=== PATIENT | male | born 1975 | race Caucasian/White ===

== ENCOUNTER 2021-01-13 10:51 | Outpatient (REF) | payer BC, SELFPAY ==
[2021-01-13 11:32] LABS: MANUAL DIFF FLAG NO
[2021-01-13 11:36] LABS: Basophils Percent Auto 0.8 % (0-2); Eosinophils Percent Auto 0.8 % (0-4); Hematocrit 42.7 % (42-52); Hemoglobin 13.9 g/dl (14.0-18.0); Imm Gran Abs Auto 0.01 X10*3/uL (0.00-0.03); Imm Gran Pct Auto 0.3 % (0.0-0.4); Lymphocytes Absolute Auto 1.5 X10*3/uL (1.2-4.9); Lymphocytes Percent Auto 40.8 % (20-40); Mean Corpuscular HGB Conc 32.6 g/dl (31.0-36.0); Mean Corpuscular Hemoglobin 28.4 pg (27.0-33.0); Mean Corpuscular Volume 87.1 fL (80-98); Mean Platelet Volume 9.8 fL (9.4-12.4); Monocytes Absolute Auto 0.4 X10*3/uL (0.1-1.2); Monocytes Percent Auto 10.5 % (2-11); Neutrophils Absolute Auto 1.7 X10*3/uL (2.0-8.3); Neutrophils Percent Auto 46.8 % (45-73); Platelet Count 229 X10*3/uL (160-400); Red Cell Distribution Width 12.5 % (11.0-16.0); White Blood Count 3.6 X10*3/uL (4.8-10.8)
[2021-01-13 11:38] LABS: Glucose Urine UA NEG (NEG); Leukocyte Esterase Urine NEG (NEG); Nitrite Urine NEG (NEG); Urine Blood NEG (NEG); Urine Ketones NEG (NEG); Urine Protein NEG (NEG-TRACE)
[2021-01-13 11:39] LABS: Appearance Urine CLEAR; Color Urine YELLOW
[2021-01-13 12:25] LABS: TSH reflex Free T4 1.18 uIU/mL (0.32-4.0); Vitamin D 25-OH Total 26.6 ng/mL (>30)
[2021-01-13 12:32] LABS: Alanine Aminotransferase 24 U/L (0-40); Albumin Level 4.4 g/dL (3.5-5.0); Alkaline Phosphatase 57 U/L (39-117); Anion Gap 11 (12-20); Aspartate Amino Transferase 29 U/L (5-37); Bilirubin Total 0.5 mg/dL (0.0-1.0); Blood Urea Nitrogen 16 mg/dL (9-16); Calcium 9.4 mg/dL (8.4-10.2); Carbon Dioxide 28 mmol/L (22-29); Chloride 105 mmol/L (96-108); Cholesterol 221 mg/dL; Estimated Glomerular Filt Rate > 60; Glucose Fasting 85 mg/dL (60-99); HDL Cholesterol 71 mg/dL; LDL Cholesterol Calculated 136 mg/dl; Potassium 4.1 mmol/L (3.3-5.1); Sodium 140 mmol/L (135-145); Total Protein 6.6 g/dL (6.5-8.0); Triglycerides 73 mg/dL
== END 2021-01-13 10:52 | disposition home or self-care (01) ==
LOC: HO.LAB 10:51
PROVIDERS: PCP Internal Medicine; Visit Provider Internal Medicine
DX: Z00.00 Encounter for general adult medical examination without abnormal findings (principal); E78.00 Pure hypercholesterolemia, unspecified; R94.5 Abnormal results of liver function studies; R39.11 Hesitancy of micturition; Z12.5 Encounter for screening for malignant neoplasm of prostate
CPT/HCPCS: 36415; 80053; 80061; 81003; 82306; 84153; 84443; 85025

== ENCOUNTER → 2021-06-10 10:14 | Outpatient (BNVA) | payer BC, SELFPAY | PROVIDERS: PCP Internal Medicine; Visit Provider Urology ==

== ENCOUNTER → 2021-08-10 14:48 | Outpatient (BNVA) | payer BC, SELFPAY | PROVIDERS: PCP Internal Medicine; Referring Provider Internal Medicine; Visit Provider Nurse Practitioner Family ==

== ENCOUNTER → 2021-09-13 16:08 | Outpatient (BNVA) | payer BC, SELFPAY | PROVIDERS: PCP Internal Medicine; Visit Provider Urology ==

== ENCOUNTER 2021-12-12 09:35 | Day surgery (SDC) | payer BC, SELFPAY ==
[2021-12-07 11:25] VITALS: BMI 22.1
--- NOTE | 2021-12-08 14:42 | HO.ANESPROP2 ---
Documented by User: Nupur Neumann NP 12/08/21 14:42 HPI - Anesthesia Eval Consult details Narrative: 46yo M for Colonoscopy [facility] Active Problems Active Problems: All Active Problems (Updated 08/24/21 @ 20:45 by VIOLETA Mello) Bladder outlet obstruction (Acute) Urinary hesitancy (Acute) Colon cancer screening (Acute) Pure hypercholesterolemia (Acute) Annual physical exam (Acute) Past Medical History Medical History (Updated 08/24/21 @ 20:45 by VIOLETA Mello) Elevated LFTs History of deviated nasal septum Pure hypercholesterolemia Urinary hesitancy Family History Family History Mother HTN (hypertension) Surgical History Surgical History No significant past surgical history Social History Social History Alcohol intake: current Alcohol intake frequency: holidays/special occasions only Patient Tobacco Use Status: Never used Tobacco Use of substances other than those prescribed or required for medical reasons: Yes Substance Use Frequency: Occasionally Are you DNR?: No Advance Directives: No Advance Directives Information Provided: Yes Meds Allergies Allergy/AdvReac Type Severity Reaction Status Date / Time amoxicillin Allergy Unknown hives Verified 08/10/21 14:48 penicillin V Allergy Unknown hives Verified 08/10/21 14:48 Exam Exam Date and Time: December 08, 2021 1442 Height,Weight and Vital Signs: Height 5 ft 6 in Weight 62.142 kg Assessment and Plan Assessment Anesthesia Assessment: Chart Reviewed Documented by User: Belinda Zavala MD 12/12/21 10:54 [facility] Past Medical History Medical History (Updated 08/24/21 @ 20:45 by VIOLETA Mello) Elevated LFTs History of deviated nasal septum Pure hypercholesterolemia Urinary hesitancy Family History Family History Mother HTN (hypertension) Family history of problems with anesthesia: No Surgical History Surgical History No significant past surgical history History of Problems with Anesthesia: No Social History Social History Alcohol intake: current Alcohol intake frequency: holidays/special occasions only Patient Tobacco Use Status: Never used Tobacco Use of substances other than those prescribed or required for medical reasons: Yes Substance Use Frequency: Occasionally Are you DNR?: No Advance Directives: No Advance Directives Information Provided: Yes Meds Allergies Allergy/AdvReac Type Severity Reaction Status Date / Time amoxicillin Allergy Unknown hives Verified 08/10/21 14:48 penicillin V Allergy Unknown hives Verified 08/10/21 14:48 Exam Airway Mallampati Class: II (Front tooth cap) TM Dist: >3cm Neck ROM: Full Heart: rrr Lungs: cta Assessment and Plan Assessment Anesthesia Assessment: Anesthesia Plan Discussed Final Anesthetic Review Family History of Problems with Anesthesia: No History of Problems with Anesthesia: No NPO: Yes ASA Class: II Final Preanesthetic Review: No Changes in Pt Med Stat, Meds/Allgs Chart Reviewed and Consent Obtained/Reviewed Patient Risk: Intermediate Procedure Risk: Intermediate Anesthetic Plan Anesthetic Plan: MAC: Disposition: Standard PACU
--- NOTE | 2021-12-12 09:47 | MHC.SHP ---
Pre-Procedural Eval Section A Date of Service: 12/12/21 Section B Chief Complaint: screening Details of Present Illness: colon cancer screening Relevant Family History (Specify if Yes): No Relevant Social History: None Present Medications: see Short Stay Collaborative assessment Medical History: Significant History (Elevated LFTs History of deviated nasal septum Pure hypercholesterolemia Urinary hesitancy) History of Previous Operations: No relevant previous surgery Allergies: Allergies Allergy/AdvReac Type Severity Reaction Status Date / Time amoxicillin Allergy Unknown hives Verified 08/10/21 14:48 penicillin V Allergy Unknown hives Verified 08/10/21 14:48 Review of Systems Sugical H&P ROS: Negative: Constitution, Cardiovascular, Respiratory and Gastrointestinal Exam Surgical H&P Exam: Normal: Heart, Normal: Lungs, Normal: Extremities and Normal: Abdomen Plan Diagnosis/Plan: Unchanged I have reviewed the history and physical and performed a pertinent physical examination on my patient. No changes have occurred unless specified.
[2021-12-12 09:57] VITALS: BMI 21.9
[2021-12-12 10:08] VITALS: BP 140/74; PULSE 51; RESP 18; TEMP 36.3; O2SAT 97
[2021-12-12] MEDS: Lactated Ringers 1,000 ML 100 ML IVCONT (10:23)
--- NOTE | 2021-12-12 11:01 | W.PM.OPN ---
Operative Note Operative Note Date of Service: 12/12/21 Narrative: Pre-op diagnosis: Colon cancer screening Post-op diagnosis:?other (Colon polyps, diverticulosis) Procedure: COLONOSCOPY TILL CECUM WITH BIOPSIES, SNARE POLYPECTOMY AND SUBMUCOSAL INJECTION Consent: Indications for the procedure and potential complications of bleeding, perforation, reaction to medications and missed diagnosis were discussed with the patient and informed consent was obtained. Instrument: Olympus PCF H 190 L variable stiffness pediatric colonoscope Monitoring: Vital signs and clinical assessment, intermittent blood pressure monitoring, continuous EKG monitoring, Pulse oximetry and Carbon Dioxide monitoring were done throughout the procedure. Colon withdrawl time was 22 minutes. Procedure: The patient was placed in the left lateral decubitis position and pre-procedure medications were administered. After a digital rectal examination of the ano-rectum, the video colonoscope was inserted into the rectum and advanced through the colon to the cecum. The colonoscope was slowly withdrawn in a retrograde panoramic fashion and the colon mucosa was carefully examined including a retroflexed view of the rectum. Findings and interventions are described below. Procedure Difficulty: Without difficulty Findings: Terminal Ileum: Not evaluated Cecum:? Normal Ascending Colon:? A 2 to 2.5 cms flat polyp in the proximal ascending colon. Polyp was raised with 2 cc of Orise solution (submucosal injection) and? removed with a hot snare.? Polypectomy site was marked with Laura ink. Transverse Colon:? Normal Descending Colon:? Normal Sigmoid Colon:? Moderate diverticulosis Rectum:? A 4-5 mm diminutive appearing polyp which was biopsied Ano-rectum:? Normal Colon preparation:? Good? Impression and Post Procedure Diagnosis: Colonoscopy Findings: One large and one small polyps removed Moderate diverticulosis seen in the sigmoid colon Plan: Await pathology results Patient has an appointment on 12/26/21 in the GI [facility] with Bailee Cespedes FNP-BC. Repeat Colonoscopy interval based on path results - in 2 years if ascending colon polyp is adenomatous (to check polypectomy site) and 10 years if polyps are hyperplastic. Above findings were reviewed with the patient and colon polyps and diverticulosis handouts were given in the discharge area Surgeon: Oliver Jorge MD Anesthesia:?MAC (Dr Peralta) Was an Music Industry Internship used for this Procedure?:?Yes Music Industry Internship:?Sadia Domínguez Estimated blood loss (mL):?0 Pathology:?other (A. transverse colon polyp with Orise? b: rectal polyp) Condition:?stable Disposition:?PACU
[2021-12-12 11:45] VITALS: BP 105/60; PULSE 53; RESP 16; TEMP 36.6; O2SAT 100
[2021-12-12 12:00] VITALS: BP 110/64; PULSE 42; RESP 16; TEMP 36.6; O2SAT 100
== END 2021-12-12 12:28 | disposition home or self-care (01) ==
PROVIDERS: PCP Internal Medicine; Visit Provider Internal Medicine Gastroenterology
PROC: 0DJD8ZZ Inspection of Lower Intestinal Tract, Via Natural or Artificial Opening Endoscopic (ICD-10-PCS; CPT 45378; principal; 2021-12-12 10:50)
DX: Z12.11 Encounter for screening for malignant neoplasm of colon (principal); D12.3 Benign neoplasm of transverse colon; K62.1 Rectal polyp; K57.30 Diverticulosis of large intestine without perforation or abscess without bleeding; Z88.0 Allergy status to penicillin
CPT/HCPCS: 45385; 45380; 45381; 88305

== ENCOUNTER 2022-02-15 09:41 | Outpatient (REF) | payer BC, SELFPAY ==
--- NOTE | ~2022-02-15 | XR_ITS ---
EXAMINATION: XR KNEE, LEFT CLINICAL INFORMATION: Pain. COMPARISON: None TECHNIQUE: Four views of the left knee. FINDINGS: The tricompartment joint space is maintained normal. No bony erosive changes, acute fracture or loose body is seen. There are hypertrophic bony changes along the anterior tibial tubercle with mild soft tissue swelling. No acute fracture or dislocation is seen. There is no joint effusion seen. XR/XR knee LT 4V IMPRESSION: Hypertrophic osteoarthropathy along the anterior tibial tubercle with mild soft tissue swelling. This could be secondary to old injury or repetitive trauma.
[2022-02-15 11:49] LABS: Hemoglobin 14.5 g/dl (14.0-18.0); PLT CLUMP 1; SCAN SMEAR FLAG 1
[2022-02-15 11:51] LABS: Basophils Percent Auto 0.8 % (0-2); Eosinophils Percent Auto 0.5 % (0-4); Hematocrit 44.3 % (42.0-52.0); Lymphocytes Absolute Auto 1.6 X10*3/uL (1.2-4.9); Lymphocytes Percent Auto 41.8 % (20-40); MANUAL DIFF FLAG SCAN; Mean Corpuscular HGB Conc 32.7 g/dl (31.0-36.0); Mean Corpuscular Volume 85.7 fL (80.0-98.0); Mean Platelet Volume 11.4 fL (9.4-12.4); Monocytes Absolute Auto 0.4 X10*3/uL (0.1-1.2); Monocytes Percent Auto 11.2 % (2-11); Neutrophils Absolute Auto 1.8 x10*3/uL (2.0-8.3); Neutrophils Percent Auto 45.7 % (45-73); Red Blood Count 5.17 X10*6/uL (4.60-5.80); Red Cell Distribution Width 12.6 % (11.0-16.0)
[2022-02-15 12:09] LABS: White Blood Count 3.8 X10*3/uL (4.8-10.8)
[2022-02-15 12:10] LABS: Platelet Count 143 X10*3/uL (160-400); SLIDE REVIEW VERIFIED
[2022-02-15 12:20] LABS: Alanine Aminotransferase 17 U/L (0-40); Albumin Level 4.4 g/dL (3.5-5.0); Alkaline Phosphatase 60 U/L (39-117); Anion Gap 12 (12-20); Aspartate Amino Transferase 23 U/L (5-37); Bilirubin Total 0.5 mg/dL (0.0-1.0); Blood Urea Nitrogen 16 mg/dL (9-16); Calcium 9.4 mg/dL (8.4-10.2); Carbon Dioxide 29 mmol/L (22-29); Chloride 105 mmol/L (96-108); Cholesterol 204 mg/dL; Estimated Glomerular Filt Rate > 60; Glucose Fasting 83 mg/dL (60-99); HDL Cholesterol 66 mg/dL; LDL Cholesterol Calculated 128 mg/dl; Potassium 4.5 mmol/L (3.3-5.1); Sodium 141 mmol/L (135-145); Total Protein 6.6 g/dL (6.5-8.0); Triglycerides 51 mg/dL
[2022-02-15 12:44] LABS: Folate 16.6 ng/mL (> or = 4.0); Vitamin B12 242 pg/mL (200-900)
[2022-02-21 12:36] LABS: Vitamin D 25-OH, D2 <4 ng/mL; Vitamin D 25-OH, D3 26 ng/mL; Vitamin D 25-OH, Total 26 ng/mL (30-100)
== END 2022-02-15 09:42 | disposition home or self-care (01) ==
LOC: HO.LAB 09:41
PROVIDERS: PCP Internal Medicine; Visit Provider Nurse Practitioner Family
DX: Z00.00 Encounter for general adult medical examination without abnormal findings (principal); I10 Essential (primary) hypertension; E78.00 Pure hypercholesterolemia, unspecified; G89.29 Other chronic pain; M25.562 Pain in left knee
CPT/HCPCS: 36415; 73564; 80053; 80061; 82306; 82607; 82746; 85025

== ENCOUNTER 2022-06-08 19:01 | Outpatient (REF) | payer BC, SELFPAY ==
--- NOTE | ~2022-06-08 | MR_ITS ---
EXAMINATION: MR KNEE WITHOUT CONTRAST, LEFT CLINICAL INFORMATION: Medial left knee pain. COMPARISON: None TECHNIQUE: MRI of the knee without contrast was performed using routine sequences on a high-field scanner. FINDINGS: MENISCI: Medial Meniscus: Oblique, femoral articular surface tear through the posterior meniscal body and posterior horn. Lateral Meniscus: Intact LIGAMENTS: Cruciate: Intact Collateral: Intact EXTENSOR MECHANISM: Lobulated ossification within the distal Achilles tendon without associated edema, consistent with a chronic avulsive injury (chronic Rainer-Schlatter's disease). Intact quadriceps tendon. Normal patellofemoral alignment. Edema interposed between the iliotibial band and lateral femoral condyle which can be seen in the setting of iliotibial band friction syndrome. ARTICULAR CARTILAGE/BONE: Patellofemoral Compartment: Articular cartilage thinning with heterogeneity and underlying subchondral cystic change at the inferior aspect the lateral patellar facet. Tiny marginal osteophytes. Medial Compartment: Articular cartilage signal heterogeneity with tiny marginal osteophytes. Lateral Compartment: Intact articular cartilage. JOINT FLUID AND BURSAE: Trace joint effusion. MR/MR knee LT wo con IMPRESSION: 1. Oblique, femoral articular surface tear through the medial meniscus posterior body and posterior horn. 2. Mild edema interposed between the lateral femoral condyle and iliotibial band which can be seen in the setting of iliotibial band friction syndrome. 3. Findings consistent with chronic Labelle-Schlatter's disease. No acute patellar or quadriceps tendon injury. 4. Minimal patellofemoral and medial compartment arthrosis. Trace joint effusion.
== END 2022-06-08 19:02 | disposition home or self-care (01) ==
LOC: HO.MRI 19:01
PROVIDERS: Visit Provider Physician Assistant
DX: M23.92 Unspecified internal derangement of left knee (principal)
CPT/HCPCS: 73721

== ENCOUNTER 2022-07-25 06:01 | Day surgery (SDC) | payer BC, SELFPAY ==
[2022-07-17 15:38] VITALS: BMI 22.6
--- NOTE | 2022-07-24 08:25 | HO.ANESPROP2 ---
Documented by User: Nupur Neumann NP 07/24/22 08:28 HPI - Anesthesia Eval Consult details Narrative: 46yo M for Left Knee Arthroscopy s/p colo 12/2021 with MAC [facility] Active Problems Active Problems: All Active Problems (Updated 06/29/22 @ 15:45 by Abdiel William) Complex tear of meniscus of left knee (Acute) Vitamin B12 deficiency (Acute) Vitamin D deficiency (Acute) Internal derangement of left knee (Acute) Left knee injury (Acute) Thrombocytopenia (Acute) Hypovitaminosis D (Acute) Leukopenia (Acute) Chronic pain of left knee (Acute) Physical exam (Acute) Bladder outlet obstruction (Acute) Urinary hesitancy (Acute) Colon cancer screening (Acute) Pure hypercholesterolemia (Acute) Annual physical exam (Acute) Past Medical History Medical History Anxiety Elevated LFTs History of deviated nasal septum Pure hypercholesterolemia Urinary hesitancy Vitamin B12 deficiency Vitamin D deficiency Family History Family History Mother HTN (hypertension) Family history of problems with anesthesia: No Surgical History Surgical History (Updated 07/25/22 @ 06:44 by Kira Rodriguez RN) History of surgery on arm Hx of colonoscopy History of Problems with Anesthesia: No Social History Social History Household Members: Family Housing: House Alcohol intake: current Alcohol intake frequency: holidays/special occasions only Patient Tobacco Use Status: Never used Tobacco e-Cigarette/Vaping Use: Never Used Second Hand Smoke Exposure: No Use of substances other than those prescribed or required for medical reasons: No Are you DNR?: No Advance Directives: No Advance Directives Information Provided: Yes service: No Current occupational status: employed Current occupation: teacher Cognitive needs: No Hearing needs: No Vision needs: No Meds Allergies Allergy/AdvReac Type Severity Reaction Status Date / Time amoxicillin Allergy Unknown hives Verified 07/25/22 06:44 penicillin V Allergy Unknown hives Verified 07/25/22 06:44 Home Medications Medication Instructions Recorded Confirmed Last Taken Type multivitamin 1 tab PO DAILY 07/17/22 07/25/22 Unknown History omega 8-jdr-yei-fish oil 1,000 mg 1 cap PO DAILY 07/17/22 07/25/22 07/18/22 History (120 mg-180 mg) capsule (Fish Oil) cholecalciferol (vitamin D3) 25 25 mcg PO DAILY PRN Anxiety 07/25/22 07/25/22 Unknown History mcg (1,000 unit) capsule Exam Exam Date and Time: July 24, 2022 0825 Height,Weight and Vital Signs: Height 5 ft 6 in Weight 63.503 kg Pertinent Lab Results Pertinent Lab Results: Laboratory Tests 02/15/22 05/10/22 10:51 16:15 WBC 4.1 L Hgb 13.0 L Hct 40.5 L Plt Count 225 Sodium 141 Potassium 4.5 Chloride 105 Carbon Dioxide 29 BUN 16 Creatinine 0.83 Assessment and Plan Assessment Anesthesia Assessment: Chart Reviewed Final Anesthetic Review Family History of Problems with Anesthesia: No History of Problems with Anesthesia: No Documented by User: Belinda Zavala MD 07/25/22 06:56 [facility] Past Medical History Medical History Anxiety Elevated LFTs History of deviated nasal septum Pure hypercholesterolemia Urinary hesitancy Vitamin B12 deficiency Vitamin D deficiency Family History Family History Mother HTN (hypertension) Surgical History Surgical History (Updated 07/25/22 @ 06:44 by Kira Rodriguez RN) History of surgery on arm Hx of colonoscopy Social History Social History Household Members: Family Housing: House Alcohol intake: current Alcohol intake frequency: holidays/special occasions only Patient Tobacco Use Status: Never used Tobacco e-Cigarette/Vaping Use: Never Used Second Hand Smoke Exposure: No Use of substances other than those prescribed or required for medical reasons: No Are you DNR?: No Advance Directives: No Advance Directives Information Provided: Yes service: No Current occupational status: employed Current occupation: teacher Cognitive needs: No Hearing needs: No Vision needs: No Meds Allergies Allergy/AdvReac Type Severity Reaction Status Date / Time amoxicillin Allergy Unknown hives Verified 07/25/22 06:44 penicillin V Allergy Unknown hives Verified 07/25/22 06:44 Home Medications Medication Instructions Recorded Confirmed Last Taken Type multivitamin 1 tab PO DAILY 07/17/22 07/25/22 Unknown History omega 4-bhh-lcf-fish oil 1,000 mg 1 cap PO DAILY 07/17/22 07/25/22 07/18/22 History (120 mg-180 mg) capsule (Fish Oil) cholecalciferol (vitamin D3) 25 25 mcg PO DAILY PRN Anxiety 07/25/22 07/25/22 Unknown History mcg (1,000 unit) capsule Exam Airway Mallampati Class: II TM Dist: >3cm Neck ROM: Full Heart: rrr Lungs: cta Assessment and Plan Assessment Anesthesia Assessment: Anesthesia Plan Discussed Final Anesthetic Review NPO: Yes ASA Class: II Final Preanesthetic Review: No Changes in Pt Med Stat, Meds/Allgs Chart Reviewed and Consent Obtained/Reviewed Patient Risk: Intermediate Procedure Risk: Intermediate Anesthetic Plan Anesthetic Plan: GA Disposition: Standard PACU
[2022-07-25] VITALS (8 sets, daily range): BP systolic 121–130; BP diastolic 66–78; PULSE 54–70; RESP 15–18; TEMP 36.2–36.7; O2SAT 95–99
[2022-07-25] MEDS: Lactated Ringers 1,000 ML 100 ML IVCONT (06:41)
--- NOTE | 2022-07-25 08:21 | P.BOP_ITS ---
Brief Operative Note Date of Service: 07/25/22 Pre-op diagnosis: left mmt Post-op diagnosis: same Procedure: left knee partial medial meniscectomy Implants: none Surgeon: Abdoul Hooper MD Anesthesia: GETA and local Was an Game Breeding Farm Manager used for this Procedure?: No Estimated blood loss (mL): 2 IV fluids (mL): 500 Pathology: none sent Condition: stable Disposition: PACU
[2022-07-25] MEDS: Acetaminophen 325 MG TABLET 650 MG PO (09:27)
[2022-07-25] MEDS: Ketorolac Tromethamine 30 MG/ML VIAL 15 MG IVPUSH (09:30)
--- NOTE | 2022-07-25 09:39 | PC.NURSE ---
when assisting patient to dress fine pink rash noted to abd and upper back. Dr. Arevalo at bedside and cleared patient for discharge. No itching or diff breathing repoted.
--- NOTE | 2022-08-01 10:38 | W.PM.OPN ---
Operative Note Operative Note Date of Service: 07/25/22 Narrative: Date of Service: 07/25/22 Pre-op diagnosis:left mmt Post-op diagnosis: same Procedure: left knee partial medial meniscectomy Implants: none Surgeon: Abdoul Hooper MD Anesthesia: GETA and local Was an General Foundry Worker used for this Procedure?: No Estimated blood loss (mL): 2 IV fluids (mL): 500 Pathology: none sent Condition: stable Disposition: PACU Procedure in detail: Patient was brought to the operating room placed supine on the arthroscopic table and prepped and draped in standard sterile fashion. A time-out was called to identify proper site proper procedure proper surgeon and IV antibiotics per weight were administered. I began by exsanguinating the limb and insufflating tourniquet to 300 mm Hg. Then made a standard anterolateral stab incision. The knee was insufflated with water and 30 degree arthroscope was placed. There was grade 0 fibrillations of the patella but overall suprapatellar pouch was plane and the gutters were clean. I descended into the medial compartment where I made my medial portal under direct visualization. There was and obvious complex tear of the body and posterior horn of the medial meniscus. THe root was intact and there was grade 0-1 changes of the posterior tibial plateau only. I used a combination of biter shaver and cautery to remove unstable portions of the meniscus. Approximately 40% meniscal volume was removed. Once I was happy with this the ACL was examined and found to be intact and the lateral compartment also was without the need for intervention. I then removed all instrumentation and closed the portals with skin glue. 25 mL of 2% Marcaine with epinephrine was injected into the joint and the surrounding soft tissues. Patient was then placed in sterile dressing extubated brought recovery room stable condition. There were no known complications.
== END 2022-07-25 11:06 | disposition home or self-care (01) ==
PROVIDERS: PCP Internal Medicine; Visit Provider Orthopaedic Surgery
PROC: (CPT 29870; principal; 2022-07-25 07:30)
DX: S83.232A Complex tear of medial meniscus, current injury, left knee, initial encounter (principal); X58.XXXA Exposure to other specified factors, initial encounter; Y93.9 Activity, unspecified; Y92.9 Unspecified place or not applicable; Y99.9 Unspecified external cause status; Z88.0 Allergy status to penicillin
CPT/HCPCS: 29881; J0171; J0330; J0690; J1100; J1885; J2250; J2405; J2795; J3010

== ENCOUNTER 2022-09-28 16:00 | Outpatient (RCR) | payer BC, SELFPAY ==
--- NOTE | 2022-09-28 16:44 | MHC.PT.DC ---
[facility] [place] Office [place] Office [place] Office [address] Joycelyn Dinero [address] [phone] F: [phone] F: [phone] F: [phone] F: [phone] Physical Therapy Discharge Report Diagnosis: S/p LEFT KNEE PARTIAL MENISECTOMY Date of Surgery: 07/25/22 Date of Evaluation: 07/31/22 Date of Discharge: 09/28/22 Treatments to Date: 7 Cancellations to Date: 3 No Shows to Date: 0 Discharge Status: Achieved Goals Improved Function Independent with HEP Discharge Summary: 09/28/2022: Pt has made good progress since beginning PT allowing him to meet all of his PT goals. Pt has maximized benefits of PT at this point and therefore skilled PT is no longer indicated at this time. Pt has been provided with a well rounded HEP in which he should continue with at home. He has been educated that when he returns to running the importance of weaning himself back into running as tolerated and as pain allows in order to avoid adverse reactions. He verbalizes understanding of this and if any new issues arise down the road he should follow up with his referring provider. Electronically signed by: Karey Shepard, PT, DPT, ATC Please sign and return to therapist. Thank you for your referral.
== END 2022-09-28 16:45 | disposition home or self-care (01) ==
LOC: HO.PT 16:00
PROVIDERS: Visit Provider Physician Assistant
DX: S83.204A Other tear of unspecified meniscus, current injury, left knee, initial encounter (principal)
CPT/HCPCS: 97110; 97161; 97530

== ENCOUNTER 2023-02-09 09:35 | Outpatient (REF) | payer BC, SELFPAY ==
[2023-02-09 09:50] LABS: MANUAL DIFF FLAG NO
[2023-02-09 10:31] LABS: Basophils Percent Auto 0.5 % (0-2); Eosinophils Absolute Auto 0.1 X10*3/uL (0.0-0.4); Eosinophils Percent Auto 0.9 % (0-4); Hematocrit 42.8 % (42.0-52.0); Hemoglobin 13.8 g/dl (14.0-18.0); Imm Gran Abs Auto 0.02 X10*3/uL (0.00-0.03); Imm Gran Pct Auto 0.3 % (0.0-0.4); Lymphocytes Absolute Auto 1.6 X10*3/uL (1.2-4.9); Lymphocytes Percent Auto 27.6 % (20-40); Mean Corpuscular HGB Conc 32.2 g/dl (31.0-36.0); Mean Corpuscular Hemoglobin 28.4 pg (27.0-33.0); Mean Corpuscular Volume 88.1 fL (80.0-98.0); Mean Platelet Volume 10.6 fL (9.4-12.4); Monocytes Absolute Auto 0.5 X10*3/uL (0.1-1.2); Monocytes Percent Auto 7.9 % (2-11); Neutrophils Absolute Auto 3.6 x10*3/uL (2.0-8.3); Neutrophils Percent Auto 62.8 % (45-73); Platelet Count 241 X10*3/uL (160-400); Red Blood Count 4.86 X10*6/uL (4.60-5.80); Red Cell Distribution Width 12.4 % (11.0-16.0); White Blood Count 5.8 X10*3/uL (4.8-10.8)
[2023-02-09 10:55] LABS: Appearance Urine Clear; Color Urine Yellow; Glucose Urine UA Negative (Negative); Leukocyte Esterase Urine Negative (Negative); Nitrite Urine Negative (Negative); Urine Blood Negative (Negative); Urine Ketones Negative (Negative); Urine Protein Negative (Neg-Trace)
[2023-02-09 11:04] LABS: Alanine Aminotransferase 24 U/L (0-40); Albumin Level 4.2 g/dL (3.5-5.0); Alkaline Phosphatase 57 U/L (39-117); Anion Gap 10 (12-20); Aspartate Amino Transferase 29 U/L (5-37); Bilirubin Total 0.7 mg/dL (0.0-1.0); Blood Urea Nitrogen 13 mg/dL (9-16); Calcium 9.6 mg/dL (8.4-10.2); Carbon Dioxide 28 mmol/L (22-29); Chloride 106 mmol/L (96-108); Cholesterol 192 mg/dL; Estimated Glomerular Filt Rate > 60; Glucose Fasting 87 mg/dL (60-99); HDL Cholesterol 60 mg/dL; LDL Cholesterol Calculated 120 mg/dl; Potassium 4.2 mmol/L (3.3-5.1); Sodium 140 mmol/L (135-145); Total Protein 6.3 g/dL (6.5-8.0); Triglycerides 64 mg/dL
[2023-02-09 11:30] LABS: Folate 16.6 ng/mL (> or = 4.0); Prostate Specific Antigen Scr 1.08 ng/mL (<0.05-4.0); TSH reflex Free T4 2.49 uIU/mL (0.32-4.0); Vitamin B12 894 pg/mL (200-900)
== END 2023-02-09 09:36 | disposition home or self-care (01) ==
LOC: HO.LAB 09:35
PROVIDERS: PCP Internal Medicine; Visit Provider Internal Medicine
DX: Z00.00 Encounter for general adult medical examination without abnormal findings (principal); E78.00 Pure hypercholesterolemia, unspecified; E55.9 Vitamin D deficiency, unspecified; R30.0 Dysuria; D72.819 Decreased white blood cell count, unspecified; E53.8 Deficiency of other specified B group vitamins; D69.6 Thrombocytopenia, unspecified; D69.3 Immune thrombocytopenic purpura; Z12.5 Encounter for screening for malignant neoplasm of prostate
CPT/HCPCS: 36415; 80053; 80061; 81003; 82306; 82607; 82746; 84153; 84443; 85025

== ENCOUNTER 2023-04-24 11:07 | Outpatient (AMB) | payer BC, SELFPAY ==
[2023-04-24 11:11] VITALS: BP 124/72; PULSE 55; O2SAT 99; BMI 22.4
--- NOTE | 2023-04-24 11:11 | A.OFFPC_ITS ---
Vital Signs 04/24/23 11:11 Height 5 ft 6 in Weight 139 lb BMI 22.4 BP 124/72 Blood Pressure Location Lt brachial Position Sitting Pulse 55 Pulse Source Pulse Oximeter Pulse Oximetry (%) 99 Oxygen Delivery Method Room Air Intake Visit Reasons: lower back pain, numb left thigh Intake Note: Pt is here for lower back pain for a week and left thigh numbness. 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 May take another dose after 20 to 30 minutes if needed PO; cyanocobalamin (vitamin B-12) (Vitamin B-12) 1,000 mcg PO DAILY multivitamin 1 tab PO DAILY omega 3-dae-gcz-fish oil 1,000 mg (120 mg-180 mg) (Fish Oil) 1 cap PO DAILY polymyxin B sulf-trimethoprim 10,000 unit- 1 mg/mL 1 drp ophthalmic (eye) Q3H 7 days Tobacco use date assessed: 02/09/23 Dental Screening Dental Screen Date: 04/24/23 Did you have a dental visit in the last 12 months?: Yes Did you have a dental problem in the last 6 months where you did not have access to dental care?: No Was dental information given to patient?: Patient has dentist HPI lower back pain, numb left thigh HPI Details Patient is a 47-year-old male here today for problem visit. This is the 1st time I am meeting this 47-year-old male with a past medical history significant for leukopenia , hyperlipidemia and generalized anxiety disorder. Reports over the last week having lower back pain and some numbness in his left thigh. He reports he may have pulled his back out while doing yard work, twisting his torso. He otherwise denies any saddle amnesia, bowel or bladder dysfunction. [facility] Medical History (Updated 04/24/23 @ 11:26 by James Garcia PA-C) Anxiety Elevated LFTs History of deviated nasal septum Meniscal injury (~07/26/22) Pure hypercholesterolemia Urinary hesitancy Vitamin B12 deficiency Vitamin D deficiency Surgical History History of surgery on arm Hx of colonoscopy Status post arthroscopic surgery of left knee (~07/2022) Family History Mother HTN (hypertension) Social History Household Members: Family Housing: House Alcohol intake: current Alcohol intake frequency: holidays/special occasions only Patient Tobacco Use Status: Never used Tobacco e-Cigarette/Vaping Use: Never Used Second Hand Smoke Exposure: No service: No Current occupational status: employed Current occupation: teacher Cognitive needs: No Hearing needs: No Vision needs: No Questionnaire Thrive Questionnaire Date Thrive assessed: 06/14/22 JUAN-7 AMB Questionnaire JUAN-7 Date JUAN - 7 assessed: 02/09/23 Source: Developed by Drs. Venancio Limon, Kaye Plunkett, Jalen Dumont and colleagues, with an educational meño from [employer]. Review of Systems Const Denies headache(s) Eyes Denies loss of vision ENT Denies vertigo, Denies dizziness, Denies headache(s) and Denies sore throat Card Denies chest pain, Denies leg edema and Denies lightheadedness Resp Denies cough, Denies hemoptysis and Denies wheezing GI Denies abdominal pain, Denies melena, Denies constipation, Denies diarrhea and Denies vomiting Denies dysuria, Denies urinary frequency and Denies urinary urgency Musc Denies arthralgias, Denies joint swelling, Denies numbness and Denies tingling Neuro Denies Abnormal speech present, Denies behavioral changes, Denies vertigo, Denies dizziness, Denies headache(s), Denies loss of vision, Denies memory loss, Denies numbness and Denies tingling Psych Denies anxiety, Denies behavioral changes, Denies depression, Denies memory loss and Denies panic attacks Dipesh/Lymph Denies easy bleeding and Denies easy bruising Aller/Immun Denies wheezing Physical exam (Primary Care) Vital Signs: Last Vital Signs Pulse 55 04/24/23 11:11 BP 124/72 04/24/23 11:11 Pulse Ox 99 04/24/23 11:11 Oxygen Delivery Method Room Air 04/24/23 11:11 BMI result Body Mass Index 22.4 Tobacco/Smoking Status: Tobacco use Status Tobacco use date assessed 02/09/23 04/24/23 11:19 Patient Tobacco Use Status Never used Tobacco 04/24/23 11:19 e-Cigarette/Vaping Use Never Used 04/24/23 11:19 Thrive Assessment: Date of Thrive Assessment Date Thrive assessed 06/14/22 04/24/23 11:19 Const General: healthy appearing, no acute distress, alert and awake Nutritional Appearance: well nourished Orientation/consciousness: oriented to person, oriented to place and oriented to time HENMT Ears: TM's normal bilaterally General nose exam: Normal nasal mucous membranes and turbinates present Eyes Conjunctivae: conjunctivae normal Sclerae: sclerae normal Pupils: Equal, round and reactive pupils present Neck Neck: Yes no lymphadenopathy and Yes no JVD Thyroid: Thyroid normal Carotids: no bruits Resp Effort & Inspection: normal respiratory effort and not tachypneic Auscultation: no crackles, no rales, no rhonchi and no wheezes Cardio Rate: regular rate Rhythm: regular rhythm Heart sounds: no murmurs and normal S1 and S2 GI Palpation (GI): Soft to palpation, nontender, no hepatomegaly and no splenomegaly Auscultation: normal bowel sounds Skin General skin exam: no rashes or lesions noted and dry skin Neuro General: oriented to person, oriented to place and oriented to time Cranial nerves: Yes Equal, round and reactive pupils present Speech: No Abnormal speech present Gait exam (Neuro): Normal gait present Motor exam (neuro): no tremor noted Extrem Right upper extremity: full ROM Left upper extremity: full ROM Right lower extremity: full ROM; no edema Left lower extremity: full ROM; no edema Psych Mental Status: mental status grossly normal Speech and movement: Normal speech and movement present Affect: normal affect Attitude: cooperative Thought process: Normal thought process present Assessment and Plan Assessment & Plan (1) Lumbar radiculopathy, acute: Code(s): M54.16 - Radiculopathy, lumbar region Plan: Patient with a 1 week history lower lumbar spine pain with radicular symptoms into left lateral thigh. Seems to be having a nerve entrapment which at the L2- L3 region. Will likely benefit from formal physical therapy. Will supply patient with prednisone taper for inflammation around disc and nerve. Advised patient to rest and implemented gentle stretching of his lower back. Will consider MRI lumbar spine if physical therapy medications fail. Orders: Orders PT Evaluation and Treatment Today M54.16 - Radiculopathy, lumbar region XR lumbar spine 2-3V Today M54.16 - Radiculopathy, lumbar region Medications: New prednisone 10 mg PO DAILY 12 tabs 0RF 6 days M54.16 - Radiculopathy, lumbar region Coding Level of Care Code Est Pt Level 3 (38886) Diagnoses Lumbar radiculopathy, acute M54.16
== END 2023-04-24 11:38 | disposition home or self-care (01) ==
PROVIDERS: PCP Internal Medicine; Visit Provider Physician Assistant
DX: M54.16 Radiculopathy, lumbar region (principal)
CPT/HCPCS: 99213

== ENCOUNTER 2023-04-24 11:41 | Outpatient (REF) | payer BC, SELFPAY ==
--- NOTE | ~2023-04-24 | XR_ITS ---
EXAMINATION: XR LUMBOSACRAL SPINE CLINICAL INFORMATION: Radiculopathy, patient states it was an injury COMPARISON: None available. TECHNIQUE: Three views of the lumbosacral spine. FINDINGS: Mild multilevel lumbar spondylosis. No lumbar vertebral body compression fractures are appreciated. Straightening of the normal lumbar lordosis. Facet arthritis in the lower lumbar spine. XR/XR lumbar spine 2-3V IMPRESSION: Mild degenerative changes in the lumbar spine. Additional imaging with CT scan or MRI should be considered for better visualization as these modalities are much more sensitive for detection of fracture or other underlying pathology.
== END 2023-04-24 11:42 | disposition home or self-care (01) ==
LOC: HO.XRAY 11:41
PROVIDERS: PCP Internal Medicine; Visit Provider Physician Assistant
DX: M54.16 Radiculopathy, lumbar region (principal)
CPT/HCPCS: 72100

== ENCOUNTER 2023-12-31 08:01 | Day surgery (SDC) | payer BC, SELFPAY ==
--- NOTE | 2023-12-28 12:18 | P.CONAN_ITS ---
Documented by User: Nupur Neumann NP 12/28/23 12:18 HPI - Anesthesia Eval Consult details Narrative: 48yo M for Colonoscopy PMFSH Active Problems Active Problems: All Active Problems Lumbar radiculopathy, acute (Acute) Bacterial conjunctivitis of right eye (Acute) Annual physical exam (Acute) Colon cancer screening (Acute) Bladder outlet obstruction (Acute) Physical exam (Acute) Chronic pain of left knee (Acute) Leukopenia (Chronic) Hypovitaminosis D (Acute) Thrombocytopenia (Acute) Left knee injury (Acute) Internal derangement of left knee (Acute) Complex tear of meniscus of left knee (Acute) Vitamin B12 deficiency (Acute) Vitamin D deficiency (Acute) Urinary hesitancy (Acute) Pure hypercholesterolemia (Acute) Past Medical History Medical History (Updated 04/24/23 @ 11:26 by James Garcia PA-C) Meniscal injury (~07/26/22) Anxiety Vitamin B12 deficiency Vitamin D deficiency Urinary hesitancy Elevated LFTs Pure hypercholesterolemia History of deviated nasal septum Family History Family History Mother HTN (hypertension) Family history of problems with anesthesia: No Surgical History Surgical History History of surgery on arm Hx of colonoscopy Status post arthroscopic surgery of left knee (~07/2022) History of Problems with Anesthesia: No Social History Social History Household Members: Family Housing: House Alcohol intake: current Alcohol intake frequency: holidays/special occasions only Patient Tobacco Use Status: Never used Tobacco e-Cigarette/Vaping Use: Never Used Second Hand Smoke Exposure: No Advance Directives: No Advance Directives Information Provided: Yes service: No Current occupational status: employed Current occupation: teacher Cognitive needs: No Hearing needs: No Vision needs: No Meds Allergies Allergy/AdvReac Type Severity Reaction Status Date / Time amoxicillin Allergy Unknown hives Verified 04/24/23 11:21 penicillin V Allergy Unknown hives Verified 04/24/23 11:21 Home Medications ?Medication ?Instructions ?Recorded ?Confirmed ?Last Taken ?Type multivitamin 1 tab PO DAILY 07/17/22 04/24/23 Unknown History omega 2-awv-crb-fish oil 1,000 mg 1 cap PO DAILY 07/17/22 04/24/23 07/18/22 History (120 mg-180 mg) capsule (Fish Oil) Assessment and Plan Assessment Anesthesia Assessment: Chart Reviewed Final Anesthetic Review Family History of Problems with Anesthesia: No History of Problems with Anesthesia: No Documented by User: Belinda Zavala MD 12/31/23 08:22 [facility] Past Medical History Medical History (Updated 04/24/23 @ 11:26 by James Garcia PA-C) Meniscal injury (~07/26/22) Anxiety Vitamin B12 deficiency Vitamin D deficiency Urinary hesitancy Elevated LFTs Pure hypercholesterolemia History of deviated nasal septum Family History Family History Mother HTN (hypertension) Surgical History Surgical History History of surgery on arm Hx of colonoscopy Status post arthroscopic surgery of left knee (~07/2022) Social History Social History Household Members: Family Housing: House Alcohol intake: current Alcohol intake frequency: holidays/special occasions only Patient Tobacco Use Status: Never used Tobacco e-Cigarette/Vaping Use: Never Used Second Hand Smoke Exposure: No Advance Directives: No Advance Directives Information Provided: Yes service: No Current occupational status: employed Current occupation: teacher Cognitive needs: No Hearing needs: No Vision needs: No Meds Allergies Allergy/AdvReac Type Severity Reaction Status Date / Time amoxicillin Allergy Unknown hives Verified 04/24/23 11:21 penicillin V Allergy Unknown hives Verified 04/24/23 11:21 Home Medications ?Medication ?Instructions ?Recorded ?Confirmed ?Last Taken ?Type multivitamin 1 tab PO DAILY 07/17/22 04/24/23 Unknown History omega 5-mxu-blu-fish oil 1,000 mg 1 cap PO DAILY 07/17/22 04/24/23 07/18/22 History (120 mg-180 mg) capsule (Fish Oil) Exam Airway Mallampati Class: II (one cap laterally) TM Dist: >3cm Neck ROM: Full Heart: rrr Lungs: cta Assessment and Plan Final Anesthetic Review NPO: Yes ASA Class: II Final Preanesthetic Review: No Changes in Pt Med Stat, Meds/Allgs Chart Reviewed and Consent Obtained/Reviewed Patient Risk: Low Procedure Risk: Low Anesthetic Plan Anesthetic Plan: MAC: Disposition: Standard PACU
--- NOTE | 2023-12-31 08:17 | MHC.SHP ---
Pre-Procedural Eval Section A - 24 Hr Update-Section A only Date of Service: 12/31/23 The patient is an INPATIENT: No The patient has been examined within 24 hours of the surgical procedure. The History & Physical has been completed within 30 days and I have reviewed it.: No Section B - Complete if H&P > 30 days Chief Complaint: Surveillance of colon polyps Relevant Family History (Specify if Yes): No Relevant Social History: None Present Medications: see Short Stay Collaborative assessment Medical History: Significant History (Elevated LFTs History of deviated nasal septum Pure hypercholesterolemia Urinary hesitancy) History of Previous Operations: Relevant previous surgery/procedure and date(s) (History of colonoscopy) Allergies: Allergies Allergy/AdvReac Type Severity Reaction Status Date / Time amoxicillin Allergy Unknown hives Verified 04/24/23 11:21 penicillin V Allergy Unknown hives Verified 04/24/23 11:21 Review of Systems Sugical H&P ROS: Negative: Constitution, Cardiovascular, Respiratory and Gastrointestinal Exam Surgical H&P Exam: Normal: Heart, Normal: Lungs and Normal: Abdomen Plan Diagnosis/Plan: Change (Proceed with colonoscopy for surveillance of colon polyps) I have reviewed the history and physical and performed a pertinent physical examination on my patient. No changes have occurred unless specified. Time Spent With Patient Time: Total time managing care of this patient today ____ minutes.
--- NOTE | 2023-12-31 08:24 | P.OP_ITS ---
Operative Note Operative Note Date of Service: 12/31/23 Narrative: COLONOSCOPY TILL CECUM Pre-op diagnosis: Surveillance for colon polyps. Post-op diagnosis:? Diverticulosis Endoscopist:? Oliver Jorge MD Anesthesia:?MAC Consent: Indications for the procedure and potential complications of bleeding, perforation, reaction to medications and missed diagnosis were discussed with the patient and informed consent was obtained. Instrument: Olympus PCF H 190 L variable stiffness pediatric colonoscope Monitoring: Vital signs and clinical assessment, intermittent blood pressure monitoring, continuous EKG monitoring, Pulse oximetry and Carbon Dioxide monitoring were done throughout the procedure. Please see anesthesia flowsheet. Colon withdrawl time was 17 minutes. Procedure: The patient was placed in the left lateral decubitis position and pre-procedure medications were administered. After a digital rectal examination of the ano-rectum, the video colonoscope was inserted into the rectum and advanced through the colon to the cecum. The colonoscope was slowly withdrawn in a retrograde panoramic fashion and the colon mucosa was carefully examined including a retroflexed view of the rectum. Findings and interventions are described below. Procedure Difficulty: without difficulty - colon was long and there was some loop formation Findings: Terminal Ileum: Not evaluated Cecum: Normal Ascending Colon: Polypectomy site visualized in the proximal AC and no recurrent/residual polyp was seen Transverse Colon: Normal Descending Colon: Normal Sigmoid Colon: Moderate diverticulosis Rectum: Normal Ano-rectum: Normal Colon preparation: Good after copious irrigation. [place] Bowel Preparation Scale Right colon; 2 Transverse colon: 2 Left colon; 2 (0 = Unprepared colon segment with mucosa not seen due to solid stool that cannot be cleared. 1 = Portion of mucosa of the colon segment seen, but other areas of the colon segment not well seen due to staining, residual stool and/or opaque liquid. 2 = Minor amount of residual staining, small fragments of stool and/or opaque liquid, but mucosa of colon segment seen well. 3 = Entire mucosa of colon segment seen well with no residual staining, small fragments of stool or opaque liquid) Impression and Post Procedure Diagnosis: Colonoscopy Findings: No polyps were detected Moderate diverticulosis seen in the sigmoid colon Plan: Repeat Colonoscopy in 5 years due to a hx of adenomatous colon polyps (adult colonoscope and Dulcolax 10 mg daily x 3 days before colonoscopy appointment) for future colonoscopies. Above findings were reviewed with the patient and relevant handouts were given and the discharge area.
[2023-12-31 08:30] VITALS: BP 135/75; PULSE 51; RESP 18; TEMP 36.9; O2SAT 100; BMI 22.4
[2023-12-31] MEDS: Lactated Ringers 1,000 ML 100 ML IVCONT (08:35)
[2023-12-31 09:14] VITALS: BP 97/54; PULSE 47; RESP 12; TEMP 36.2; O2SAT 98
[2023-12-31 09:29] VITALS: BP 103/58; PULSE 46; RESP 16; TEMP 36.7; O2SAT 100
== END 2023-12-31 10:01 | disposition home or self-care (01) ==
PROVIDERS: PCP Internal Medicine; Visit Provider Internal Medicine Gastroenterology
PROC: 0DJD8ZZ Inspection of Lower Intestinal Tract, Via Natural or Artificial Opening Endoscopic (ICD-10-PCS; CPT 45378; principal; 2023-12-31 09:20)
DX: Z12.11 Encounter for screening for malignant neoplasm of colon (principal); Z86.010 Personal history of colon polyps; K57.30 Diverticulosis of large intestine without perforation or abscess without bleeding; E78.00 Pure hypercholesterolemia, unspecified; R39.11 Hesitancy of micturition; R79.89 Other specified abnormal findings of blood chemistry; Z79.899 Other long term (current) drug therapy; Z88.0 Allergy status to penicillin
CPT/HCPCS: 45378; J2704

== ENCOUNTER → 2023-12-31 08:01 | Outpatient (BNV) | payer BC, SELFPAY | PROVIDERS: PCP Internal Medicine; Visit Provider Internal Medicine Gastroenterology | DX: Z12.11 Encounter for screening for malignant neoplasm of colon (principal); Z86.010 Personal history of colon polyps; K57.30 Diverticulosis of large intestine without perforation or abscess without bleeding | CPT/HCPCS: 45378 ==

== ENCOUNTER 2024-04-17 14:29 | Outpatient (REF) | payer BC, SELFPAY ==
--- NOTE | ~2024-04-17 | XR_ITS ---
EXAMINATION: XR KNEE, RIGHT CLINICAL INFORMATION: Right knee pain. COMPARISON: None available. TECHNIQUE: AP standing view of the right and left knee as well as lateral and sunrise views of the right knee. FINDINGS: Right Knee: Corticated ossification adjacent to the tibial tuberosity consistent with a remote avulsion injury (chronic [place]-Schlatter's disease). No acute fracture or dislocation. No joint space narrowing. Tiny patellofemoral marginal osteophytes. No osseous erosion. Trace joint effusion. XR/XR knee RT 3V IMPRESSION: Corticated ossification adjacent to the tibial tuberosity consistent with a remote avulsion injury (chronic [place]-Schlatter's disease). Minimal patellofemoral arthrosis. Trace joint effusion. Electronically signed by: Joshua Banks MD 05/14/2024 08:58 PM EDT
== END 2024-04-17 14:30 | disposition home or self-care (01) ==
LOC: HO.HOSX 14:29
PROVIDERS: PCP Internal Medicine; Visit Provider Orthopaedic Surgery
DX: M25.561 Pain in right knee (principal)
CPT/HCPCS: 73562

== ENCOUNTER 2024-04-17 14:29 | Outpatient (AMB) | payer BC, SELFPAY ==
--- NOTE | 2024-04-17 14:56 | A.OFFVIS_ITS ---
Intake Visit Reasons: New prob- right knee pain Intake Note: Keo is a 48 year old male who presents today for a new problem visit with complaints of right knee pain. Patient reports that he has had right knee pain ongoing for about 6 months ago. He cannot attribute this pain to any direct injury, however he feels that his pain is feeling the samel as the left knee did prior to last surgery. He is not taking medication for his pain, but he does continue to do home exercises that he learned from his last procedure on his left leg. Allergies amoxicillin Allergy (Unknown, Verified 04/24/23 11:21) hives penicillin V Allergy (Unknown, Verified 04/24/23 11:21) hives HPI HPI New prob- right knee pain: Details: Keo is a 48 year old male who presents today for a new problem visit with complaints of right knee pain. Patient reports that he has had right knee pain ongoing for about 6 months ago. He cannot attribute this pain to any direct injury, however he feels that his pain is feeling the samel as the left knee did prior to last surgery. He is not taking medication for his pain, but he does continue to do home exercises that he learned from his last procedure on his left leg. [facility] Medical History (Updated 04/17/24 @ 15:08 by Abdoul Hooper MD) Meniscal injury (~07/26/22) Anxiety Vitamin B12 deficiency Vitamin D deficiency Urinary hesitancy Elevated LFTs Pure hypercholesterolemia History of deviated nasal septum Surgical History History of surgery on arm Hx of colonoscopy Status post arthroscopic surgery of left knee (~07/2022) Family History Mother HTN (hypertension) Social History Household Members: Family Housing: House Alcohol intake: current Alcohol intake frequency: holidays/special occasions only Patient Tobacco Use Status: Never used Tobacco e-Cigarette/Vaping Use: Never Used Second Hand Smoke Exposure: No service: No Current occupational status: employed Current occupation: teacher Cognitive needs: No Hearing needs: No Vision needs: No Physical Exam Extrem Other: Tenderness to palpation medial compartment right knee Positive medial Steinmann his right knee No effusion right knee Results Reviewed Results Reviewed: I personally reviewed relevant radiographs. Normal-appearing joint space bilateral knees. [place] of [place]-Schlatter disease on the lateral Assessment & Plan Assessment & Plan (1) Internal derangement of right knee: Code(s): M23.91 - Unspecified internal derangement of right knee Category: Medical Plan: This is extremely active and healthy gentleman who is having worsening medial joint line pain similar to his contralateral side which required a knee arthroscopy. He is not improved in 6 months and I recommend MRI. Orders: Orders XR knee RT 3V 04/17/24 M25.561 - Pain in right knee MR knee RT wo con 04/17/24 M23.91 - Unspecified internal derangement of right knee Coding Level of Care Code Est Pt Level 3 (96603) Diagnoses Internal derangement of right knee M23.91
== END 2024-04-17 15:28 | disposition home or self-care (01) ==
PROVIDERS: PCP Internal Medicine; Visit Provider Orthopaedic Surgery
DX: M23.91 Unspecified internal derangement of right knee (principal)
CPT/HCPCS: 99213